=== PATIENT | female | born 1950 ===

== ENCOUNTER 2024-04-25 07:00 | Day surgery (SDC) | payer OTHER ==
[2024-04-25] MEDS ORDERED: MIDAZOLAM HCL 2 MG/2 ML VIAL IV ONE (10:15)
[2024-04-25] MEDS ORDERED: DIPHENHYDRAMINE HCL 50 MG/ML VIAL 1ML IV ONE (10:15)
[2024-04-25] MEDS ORDERED: fentaNYL CITRATE 50 MCG/ML AMPUL IV PUSH ONE (10:15)
== END 2024-04-25 11:10 | disposition home or self-care (01) ==
LOC: AMB-ENDOS 07:00
PROVIDERS: ATTEND Internal Medicine
DX: D12.3 Benign neoplasm of transverse colon (principal); D12.4 Benign neoplasm of descending colon; K63.5 Polyp of colon; K59.9 Functional intestinal disorder, unspecified; K91.89 Other postprocedural complications and disorders of digestive system; K63.89 Other specified diseases of intestine; Z88.6 Allergy status to analgesic agent